=== PATIENT | female | born 1950 | race Caucasian/White ===

== ENCOUNTER 2022-04-21 12:48 | Emergency (ER) | payer OTHER ==
[~2022-04-21] VITALS: Ht 144.8 cm; Wt 79.9 kg
[2022-04-21 13:15] VITALS: BP 126/54
--- NOTE | 2022-04-21 16:43 | NUR ---
pt ambulated to bed 10 at this time
[2022-04-21] MEDS ORDERED: MORPHINE SULFATE 4 MG/ML SYR IM ONE (17:00)
[2022-04-21] MEDS ORDERED: ACET-8386 PO (17:06)
[2022-04-21] MEDS ORDERED: ONDA8TAB87 PO (17:06)
--- NOTE | 2022-04-21 17:14 | NUR ---
Pt given morphine for ORNELAS at this time 02/02 pain
--- NOTE | 2022-04-21 17:30 | NUR ---
Re-evaluation of pain at this time. Pt states her ORNELAS is gone and 0/10 pain.
[2022-04-21 17:34] VITALS: BP 134/78
--- NOTE | 2022-04-21 17:34 | NUR ---
Patient discharged with v/s stable. Written and verbal after care instructions given and explained with teach back . Patient alert, oriented and verbalized understanding of instructions. Ambulatory with steady gait. All questions addressed prior to discharge. ID band removed. Patient advised to follow up with PMD. Rx of zofran/Delevan given. Patient educated on indication of medication including possible reaction and side effects. Opportunity to ask questions provided and answered.
== END 2022-04-21 17:34 | disposition home or self-care (01) ==
LOC: MED 12:48
DX: R51.9 Headache, unspecified (principal); I10 Essential (primary) hypertension; Z98.890 Other specified postprocedural states; Z88.0 Allergy status to penicillin; Z88.6 Allergy status to analgesic agent; Z79.899 Other long term (current) drug therapy
CPT/HCPCS: 70450; 81002; 96372; 99284; J2270